=== PATIENT | male | born 1960 | race Caucasian/White ===

== ENCOUNTER 2021-07-31 03:17 | Emergency (ER) | payer OTHER ==
[~2021-07-31] VITALS: Ht 190.5 cm; Wt 105.1 kg
[2021-07-31] MEDS ORDERED: COZAAR25 MG PO (03:39)
[2021-07-31] MEDS ORDERED: OMEPRAZOLE20 MG PO (03:39)
[2021-07-31] MEDS ORDERED: CYCLOBENZAPRINE5 MG PO (04:27)
--- NOTE | 2021-08-02 14:07 | EKG ---
[facility] [address] [place] [address] Signed Normal sinus rhythm Normal ECG No previous ECGs available Confirmed by MICHAELA PAK MD ([id number] on 08/02/2021 2:06:45 PM Electronically Signed By: MICHAELA PAK MD 08/02/21 1407 PATIENT NAME: MEENA MERCER Electrocardiogram DATE OF : 56 PHYSICIAN: MICHAELA PAK MD REPORT #: [id number] REPORT IS CONFIDENTIAL AND NOT TO BE RELEASED WITHOUT AUTHORIZATION
== END 2021-07-31 04:43 | disposition home or self-care (01) ==
LOC: ED 03:17
DX: S46.811A Strain of other muscles, fascia and tendons at shoulder and upper arm level, right arm, initial encounter (principal); I10 Essential (primary) hypertension; Z79.899 Other long term (current) drug therapy; X58.XXXA Exposure to other specified factors, initial encounter
CPT/HCPCS: 36415; 71045; 80048; 83735; 84484; 85025; 85610; 93005; 93010; 99284-25